=== PATIENT | male | born 1985 | race Caucasian/White ===

== ENCOUNTER 2017-01-26 21:27 | Emergency (ER) | payer BC, OTHER ==
[~2017-01-26] VITALS: Ht 177.8 cm; Wt 65.8 kg
[~2017-01-26 21:27] MED LIST: MAX5OPS OP
[2017-01-26] MEDS ORDERED: LIDOCAINE 1% HCL (LOCAL ANESTH.) INJ 20ML MDV ONE (22:32)
[2017-01-26] MEDS ORDERED: LIDOCAINE 1% HCL (LOCAL ANESTH.) INJ 20ML MDV IN ONE (22:45)
[2017-01-26] MEDS ORDERED: cefTRIAXone W LIDOCAINE 1 GM IM IM ONE (23:15)
[2017-01-26] MEDS ORDERED: cefTRIAXone SOD 1,000 MG VL ONE (23:16)
[2017-01-26 23:53] VITALS: BP 124/74
== END 2017-01-26 23:52 | disposition home or self-care (01) ==
LOC: ER 21:30
DX: S01.511A Laceration without foreign body of lip, initial encounter (principal); F17.210 Nicotine dependence, cigarettes, uncomplicated; W19.XXXA Unspecified fall, initial encounter; Y93.89 Activity, other specified; Y99.8 Other external cause status; Y92.002 Bathroom of unspecified non-institutional (private) residence as the place of occurrence of the external cause
CPT/HCPCS: 12013; 96372; 99283; J0696; J2001